=== PATIENT | female | born 1950 | race Caucasian/White ===

== ENCOUNTER 2016-06-19 07:49 | Day surgery (SDC) | payer BC ==
[2016-06-19] VITALS (7 sets, daily range): BP systolic 122–183; BP diastolic 66–87; PULSE 50–64; TEMP 97.3–98
[~2016-06-19] VITALS: Ht 167.6 cm; Wt 82.3 kg
[~2016-06-19 07:49] MED LIST: AZOR; HCTZ 25MG25 MG PO; LEXAPRO 10MG10 MG PO; SINGULAIR10 MG PO
[2016-06-19] MEDS ORDERED: SYNTHROID0.05 MG/TA PO (08:18)
[2016-06-19] MEDS ORDERED: CARDIZEM CD 18180 MG PO (08:19)
[2016-06-19] MEDS ORDERED: BENICAR40 MG PO (08:20)
[2016-06-19] MEDS ORDERED: LASIX 40MG TABL40 MG PO (08:21)
[2016-06-19] MEDS ORDERED: PROZAC 20MG20 MG PO (08:22)
[2016-06-19] MEDS ORDERED: LATISSE 5 ML5 ML TOP (08:22)
[2016-06-19] MEDS ORDERED: ALEVE 220MG220 MG PO (08:22)
[2016-06-19] MEDS ORDERED: ASPIRIN 32325 MG/TA1 PO (08:23)
== END 2016-06-19 15:45 | disposition home or self-care (01) ==
LOC: SDCO 07:49
DX: K43.2 Incisional hernia without obstruction or gangrene (principal); K40.90 Unilateral inguinal hernia, without obstruction or gangrene, not specified as recurrent; I10 Essential (primary) hypertension; R01.1 Cardiac murmur, unspecified; E07.9 Disorder of thyroid, unspecified
CPT/HCPCS: A4315; C1781; E0710; J0690; J1100; J1885; J2250; J2405; J2704; J2710; J3010; J7120

== ENCOUNTER 2017-01-10 08:25 | Day surgery (SDC) | payer BC ==
[~2017-01-10] VITALS: Ht 167.8 cm; Wt 78.1 kg
[2017-01-10] VITALS (15 sets, daily range): BP systolic 154–187; BP diastolic 88–110; PULSE 48–67; TEMP 98.5
[~2017-01-10 08:25] MED LIST changes: +ALEVE 220MG220 MG PO; +ASPIRIN 32325 MG/TA1 PO; +BENICAR40 MG PO; +CARDIZEM CD 18180 MG PO; +LASIX 40MG TABL40 MG PO; +LATISSE 5 ML5 ML TOP; +PROZAC 20MG20 MG PO; +SYNTHROID0.05 MG/TA PO
[2017-01-10 08:56] LABS: HEMATOCRIT 40.4 % (37.0-47.0); HEMOGLOBIN 13.4 g/dl (12.5-16.0); MEAN CELL VOLUME 100 fl (80.0-100.0); MEAN CORPUSCULAR HEMOGLOBIN 33 pg (27.0-31.0); MEAN CORPUSCULAR HGB CONC 33 g/dl (33.0-37.0); MEAN PLATELET VOLUME 9.2 fl (7.4-10.4); PLATELET COUNT 358 K/mm3 (130-400); RED BLOOD COUNT 4.04 M/mm3 (4.10-5.30); REDCELL DISTRIBUTION WIDTH-CV 12.1 % (11.5-14.5); WHITE BLOOD COUNT 8.1 K/mm3 (4.8-10.8)
[2017-01-10 09:01] LABS: PROTHROMBIN TIME 11.1 SECONDS (9.7-12.8)
[2017-01-10 09:05] LABS: CREATININE, serum 0.71 mg/dL (0.52-1.25); POTASSIUM 3.7 mmol/L (3.4-5.0)
[2017-01-10] MEDS ORDERED: BYSTOLIC20 MG PO (09:57)
== END 2017-01-10 17:10 | disposition home or self-care (01) ==
LOC: COL.CAR 08:25
PROVIDERS: Internal Medicine Cardiovascular Disease
DX: I08.3 Combined rheumatic disorders of mitral, aortic and tricuspid valves (principal); I25.10 Atherosclerotic heart disease of native coronary artery without angina pectoris; I77.810 Thoracic aortic ectasia; I11.0 Hypertensive heart disease with heart failure; I50.30 Unspecified diastolic (congestive) heart failure; F32.9 Major depressive disorder, single episode, unspecified; M19.90 Unspecified osteoarthritis, unspecified site; Z87.891 Personal history of nicotine dependence; Z82.49 Family history of ischemic heart disease and other diseases of the circulatory system
CPT/HCPCS: C1725; C1760; C1769; C1894; J2250; J3010; Q9967

== ENCOUNTER → 2017-01-14 | Outpatient (CLI) | payer BC ==
[~2017-01-14] MED LIST changes: +BYSTOLIC20 MG PO
== END ==
LOC: COL.PUL 10:37
DX: Z01.810 Encounter for preprocedural cardiovascular examination (principal); I35.0 Nonrheumatic aortic (valve) stenosis; R06.02 Shortness of breath

== ENCOUNTER → 2018-04-01 | Outpatient (CLI) | payer MEDICARE, BC | LOC: COL.RAD 07:36 | DX: I71.2 Thoracic aortic aneurysm, without rupture (principal); J43.9 Emphysema, unspecified; K80.20 Calculus of gallbladder without cholecystitis without obstruction; I70.0 Atherosclerosis of aorta; Z98.890 Other specified postprocedural states; Z95.2 Presence of prosthetic heart valve; Z87.81 Personal history of (healed) traumatic fracture; Z90.710 Acquired absence of both cervix and uterus; Z96.642 Presence of left artificial hip joint | CPT/HCPCS: Q9967 ==

== ENCOUNTER 2020-01-14 09:23 | Day surgery (SDC) | payer MEDICARE, BC ==
[~2020-01-14] VITALS: Ht 167.7 cm; Wt 80.5 kg
[~2020-01-14 09:23] MED LIST changes: +SINGULAIR 110 MG/TAB PO; -SINGULAIR10 MG PO
[2020-01-14 09:54] VITALS: BP 133/86; PULSE 96; TEMP 97
[2020-01-14] MEDS ORDERED: NORVASC 5MG5 MG/TAB PO (10:00)
[2020-01-14 12:35] VITALS: BP 120/86; PULSE 61
[2020-01-14 12:50] VITALS: BP 104/77; PULSE 62
[2020-01-14 13:05] VITALS: BP 109/84; PULSE 68
[2020-01-14 13:20] VITALS: BP 112/89; PULSE 86
[2020-01-14 14:00] VITALS: BP 115/90; PULSE 80
== END 2020-01-14 14:00 | disposition home or self-care (01) ==
LOC: COL.CAR 09:23
DX: M84.48XA Pathological fracture, other site, initial encounter for fracture (principal); Z90.710 Acquired absence of both cervix and uterus; Z95.2 Presence of prosthetic heart valve; Z96.642 Presence of left artificial hip joint; Z90.49 Acquired absence of other specified parts of digestive tract; Z88.1 Allergy status to other antibiotic agents; Z88.0 Allergy status to penicillin; Z88.2 Allergy status to sulfonamides; Z88.7 Allergy status to serum and vaccine; Z87.891 Personal history of nicotine dependence
CPT/HCPCS: C1713; J2250; J3010

== ENCOUNTER → 2020-02-14 | Outpatient (CLI) | payer MEDICARE, BC ==
[~2020-02-14] MED LIST changes: +NORVASC 5MG5 MG/TAB PO
== END ==
LOC: COL.RAD 07:43
DX: I77.810 Thoracic aortic ectasia (principal); I51.7 Cardiomegaly; I72.2 Aneurysm of renal artery; J43.9 Emphysema, unspecified; S32.502D Unspecified fracture of left pubis, subsequent encounter for fracture with routine healing; Z96.642 Presence of left artificial hip joint; Z95.2 Presence of prosthetic heart valve; Z90.711 Acquired absence of uterus with remaining cervical stump; Z90.49 Acquired absence of other specified parts of digestive tract
CPT/HCPCS: Q9967

== ENCOUNTER → 2020-03-02 | Outpatient (CLI) | payer MEDICARE, BC ==
[~2020-03-02] MED LIST changes: +ELIQUIS 5MG PO
== END ==
LOC: COL.RAD 13:26
DX: Z01.812 Encounter for preprocedural laboratory examination (principal); I77.810 Thoracic aortic ectasia
CPT/HCPCS: Q9967

== ENCOUNTER 2020-03-03 09:18 | Emergency (ER) | payer MEDICARE, BC ==
[~2020-03-03] VITALS: Ht 167.6 cm; Wt 77.3 kg
[~2020-03-03 09:18] MED LIST changes: -ELIQUIS 5MG PO
[2020-03-03 09:24] VITALS: TEMP 97.7
[2020-03-03] MEDS ORDERED: ELIQUIS 5MG PO (09:27)
[2020-03-03 10:21] LABS: BASO # 0.1 (0.0-0.2); BASO % 0.8 % (0.0-2.0); EOS # 0.2 (0.0-0.7); EOS % 2.6 % (0-4.0); GRAN # 4.3 (1.4-6.5); GRAN % 67.1 % (42.2-75.2); HEMATOCRIT 44.3 % (37.0-47.0); HEMOGLOBIN 14.7 g/dl (12.5-16.0); LYMPH # 1.4 (1.2-3.4); LYMPH % 21.9 % (20.0-51.0); MEAN CELL VOLUME 101 fl (80.0-100.0); MEAN CORPUSCULAR HEMOGLOBIN 34 pg (27.0-31.0); MEAN CORPUSCULAR HGB CONC 33 g/dl (33.0-37.0); MEAN PLATELET VOLUME 9.6 fl (7.4-10.4); MONO # 0.5 (0.1-0.6); MONO % 7.3 % (1.7-9.3); PLATELET COUNT 302 K/mm3 (130-400); RED BLOOD COUNT 4.39 M/mm3 (4.10-5.30); REDCELL DISTRIBUTION WIDTH-CV 12.4 % (11.5-14.5)
[2020-03-03 10:32] LABS: ALANINE AMINOTRANSFERASE 41 U/L (4-34); ALBUMIN 4.4 gm/dL (3.5-5.0); ALKALINE PHOSPHATASE 181 U/L (50-136); ANION GAP 9 mmol/L (7-16); AST,SGOT 37 U/L (15-37); BILIRUBIN,TOTAL 0.5 mg/dL (0.0-1.0); BLOOD UREA NITROGEN 14 mg/dL (7-17); CALCIUM 9.7 mg/dL (8.4-10.2); CARBON DIOXIDE 29 mmol/L (22-30); CHLORIDE 100 mmol/L (98-107); CREATININE, serum 0.62 (0.52-1.25); GLUCOSE 92 mg/dL (74-106); PROTHROMBIN TIME 11.6 SECONDS (9.7-12.8); SODIUM 138 mmol/L (137-145); TOTAL PROTEIN 7.9 gm/dL (6.4-8.2)
[2020-03-03 10:44] LABS: TROPONIN-I < 0.012 ng/mL (0.000-0.035)
[2020-03-03 15:15] VITALS: BP 132/81; PULSE 89
== END 2020-03-03 15:51 | disposition short-term general hospital (02) ==
LOC: COL.ER 09:18
PROVIDERS: Emergency Medicine
DX: I71.00 Dissection of unspecified site of aorta (principal); I10 Essential (primary) hypertension; Z79.01 Long term (current) use of anticoagulants; Z88.6 Allergy status to analgesic agent; Z88.8 Allergy status to other drugs, medicaments and biological substances; Z88.1 Allergy status to other antibiotic agents; Z88.2 Allergy status to sulfonamides

== ENCOUNTER 2020-04-24 16:41 | Inpatient (IN) | payer MEDICARE, BC ==
[~2020-04-24] VITALS: Ht 162.6 cm; Wt 82.8 kg
[~2020-04-24 16:41] MED LIST changes: +ELIQUIS 5MG PO
[2020-05-01 09:49] VITALS: BP 114/71; PULSE 74; TEMP 98.5
[2020-05-01 11:31] LABS: BASO # 0.1 (0.0-0.2); BASO % 0.6 % (0.0-2.0); EOS # 0.1 (0.0-0.7); GRAN # 6.2 (1.4-6.5); GRAN % 76.3 % (42.2-75.2); HEMATOCRIT 39.2 % (37.0-47.0); HEMOGLOBIN 12.6 g/dl (12.5-16.0); LYMPH # 1.3 (1.2-3.4); LYMPH % 16.1 % (20.0-51.0); MEAN CELL VOLUME 95 fl (80.0-100.0); MEAN CORPUSCULAR HEMOGLOBIN 31 pg (27.0-31.0); MEAN CORPUSCULAR HGB CONC 32 g/dl (33.0-37.0); MEAN PLATELET VOLUME 9.1 fl (7.4-10.4); MONO # 0.5 (0.1-0.6); MONO % 5.5 % (1.7-9.3); PLATELET COUNT 284 K/mm3 (130-400); RED BLOOD COUNT 4.13 M/mm3 (4.10-5.30); REDCELL DISTRIBUTION WIDTH-CV 12.2 % (11.5-14.5)
[2020-05-01 11:32] LABS: INR 1.4 (0.8-3.0); PROTHROMBIN TIME 15.3 SECONDS (9.7-12.8)
[2020-05-01 11:35] LABS: ALBUMIN 4.5 gm/dL (3.5-5.0); BILIRUBIN,TOTAL 0.5 mg/dL (0.0-1.0); CALCIUM 9.9 mg/dL (8.4-10.2); CREATININE, serum 0.6 (0.52-1.25); POTASSIUM 4.1 mmol/L (3.4-5.0); TOTAL PROTEIN 8.3 gm/dL (6.4-8.2)
[2020-05-01] MEDS ORDERED: TYLENOL 500MG500 MG PO (11:46)
[2020-05-01] MEDS ORDERED: TOPROL XL 25MG25 MG (11:49)
[2020-05-01 12:04] LABS: THYROID STIMULATING HORMONE 1.51 uIU/mL (0.465-4.680)
[2020-05-01 12:55] VITALS: BP 139/63; PULSE 88; TEMP 98.2
[2020-05-01 13:41] VITALS: BP 125/72; PULSE 70; TEMP 98.2
--- NOTE | 2020-05-01 15:21 | NUR ---
Patient is alert and oriented. denies any pain. Patient was admitted today by Dr Montaño for Sotalol initiation. patient EKG shows abnormal rhythm , VPaced, Qtc 510. Informed Dr Montaño before sotalol was given. completed physical and history assessment with patient. Patient is couldn't confirm if she takes Norvasc, and what dose of Metoprolol she takes. Patient Spouse will be providing patient's medication list to patient. Will review medication reconciliation with patient again. patient is independent in the room at this time. No concern or question at this time.
[2020-05-01 15:50] VITALS: BP 126/60; PULSE 82; TEMP 98.5
--- NOTE | 2020-05-01 18:41 | NUR ---
Patient alert and oriented. denies any pain, complain of constipation. patient had dialysis today. gave patient dulcolax and prune juice for constipation. administer hydralizine. spb 189, post dialysis, gave patient daily blood pressure medication, rechecked SBP 157. at bedside. patient resting in bed at this time.
[2020-05-01 19:46] VITALS: BP 120/70; PULSE 76; TEMP 97.7
--- NOTE | 2020-05-01 20:06 | NUR ---
Resting in bed. Assessment complete. Lungs clear. Heart sounds irregular. Bowels active x4. Pulses present throughout. No edema noted. INT left wrist without complications. Denies pain. Denies needs. Call light in reach.
[2020-05-02] VITALS (7 sets, daily range): BP systolic 119–140; BP diastolic 66–91; PULSE 69–73; TEMP 97.5–98.2
--- NOTE | 2020-05-02 00:54 | NUR ---
Resting in bed. Denies needs. Call light in reach.
--- NOTE | 2020-05-02 05:50 | NUR ---
Patient had uneventful night. Resting in bed this AM. Call light in reach.
[2020-05-02 06:41] LABS: BASO # 0.1 (0.0-0.2); BASO % 0.8 % (0.0-2.0); EOS # 0.2 (0.0-0.7); EOS % 2.3 % (0-4.0); GRAN # 4.6 (1.4-6.5); GRAN % 70.1 % (42.2-75.2); HEMATOCRIT 37.5 % (37.0-47.0); HEMOGLOBIN 11.9 g/dl (12.5-16.0); LYMPH # 1.3 (1.2-3.4); LYMPH % 20.3 % (20.0-51.0); MEAN CELL VOLUME 95 fl (80.0-100.0); MEAN CORPUSCULAR HEMOGLOBIN 30 pg (27.0-31.0); MEAN CORPUSCULAR HGB CONC 32 g/dl (33.0-37.0); MEAN PLATELET VOLUME 9.2 fl (7.4-10.4); MONO # 0.4 (0.1-0.6); PLATELET COUNT 265 K/mm3 (130-400); RED BLOOD COUNT 3.94 M/mm3 (4.10-5.30); REDCELL DISTRIBUTION WIDTH-CV 12.2 % (11.5-14.5)
[2020-05-02 06:54] LABS: CALCIUM 9.4 mg/dL (8.4-10.2); CREATININE, serum 0.62 (0.52-1.25); POTASSIUM 3.8 mmol/L (3.4-5.0)
--- NOTE | 2020-05-02 07:00 | NUR ---
awake resting in bed, bedside shift report received from ASCENCION Prakash
--- NOTE | 2020-05-02 07:10 | NUR ---
Report given to ASCENCION López
--- NOTE | 2020-05-02 07:30 | NUR ---
up and about in room and going to bathroom, full assessment completed, see interventions for further info, denies needs at this time
--- NOTE | 2020-05-02 10:05 | NUR ---
called and stated she was having chest pain, states it feels like a charley horse in her chest, BP 130/80, P 74, R 16,, spoke with client technologies specialist and no irregular rhythm noted, as I was checking on her she states the pain then subsides, she states this is how it has been but it lasted longer this time, approx 10 minutes, by the time I was finished asessing the pain was gone, will continue to monitor
--- NOTE | 2020-05-02 10:47 | NUR ---
First visit from the yarn spooler. No needs right now.
--- NOTE | 2020-05-02 11:15 | NUR ---
in bed and appears to be sleeping, eyes closed, resp quiet and easya
--- NOTE | 2020-05-02 13:10 | NUR ---
sitting up in chair, had lunch and tolerated well, denies needs
--- NOTE | 2020-05-02 14:14 | NUR ---
Laborer Pole Crew met with patient to discuss discharge planning. Patient lives in [place] with her , Ady (ph#[phone]). Patient sees Dr. Rodriguez for primary care and obtains medications from [facility] with no difficulties. Patient does not use any DME and reports independence with ADLS. Patient states her , Ady is her DPOA-HC. Patient plans to return home upon discharge. SW contacted patient's , Ady to review discharge plan. Ady has no concerns about patient returning home upon discharge. No needs identified at this time.
--- NOTE | 2020-05-02 15:33 | NUR ---
resting in bed reading a book, denies needs
--- NOTE | 2020-05-02 17:30 | NUR ---
visiting with , consent signed for procedure on Wed
--- NOTE | 2020-05-02 19:07 | NUR ---
bedside shift report given to ASCENCION Prakash
--- NOTE | 2020-05-02 21:30 | NUR ---
Resting in bed. Assessment complete. Lungs clear. Heart sounds normal. Bowels active x4. Pulses present throughout. No edema noted. INT left wrist erythema and painful for patient. Restarted in left forearm. Denies other needs at this time. Call light in reach.
[2020-05-03] VITALS (9 sets, daily range): BP systolic 112–137; BP diastolic 61–80; PULSE 66–74; TEMP 98–98.4
--- NOTE | 2020-05-03 00:28 | NUR ---
Resting in bed. Denies needs. Call light in reach.
--- NOTE | 2020-05-03 02:07 | NUR ---
Resting inbed asleep. Call light in reach.
--- NOTE | 2020-05-03 04:03 | NUR ---
Resting in bed. Call light in reach.
--- NOTE | 2020-05-03 06:09 | NUR ---
Patient had uneventful night. Resting in bed this AM. Call light in reach.
[2020-05-03 06:59] LABS: BASO # 0.1 (0.0-0.2); BASO % 0.7 % (0.0-2.0); EOS # 0.2 (0.0-0.7); EOS % 2.4 % (0-4.0); GRAN # 5.1 (1.4-6.5); GRAN % 71.1 % (42.2-75.2); HEMOGLOBIN 12.3 g/dl (12.5-16.0); LYMPH # 1.4 (1.2-3.4); LYMPH % 19.6 % (20.0-51.0); MEAN CELL VOLUME 96 fl (80.0-100.0); MEAN CORPUSCULAR HEMOGLOBIN 30 pg (27.0-31.0); MEAN CORPUSCULAR HGB CONC 32 g/dl (33.0-37.0); MEAN PLATELET VOLUME 9.6 fl (7.4-10.4); MONO # 0.4 (0.1-0.6); MONO % 5.8 % (1.7-9.3); PLATELET COUNT 267 K/mm3 (130-400); RED BLOOD COUNT 4.05 M/mm3 (4.10-5.30); REDCELL DISTRIBUTION WIDTH-CV 12.2 % (11.5-14.5)
--- NOTE | 2020-05-03 07:08 | NUR ---
Report given to ASCENCION Quintero
[2020-05-03 07:26] LABS: CALCIUM 9.2 mg/dL (8.4-10.2); CREATININE, serum 0.59 (0.52-1.25); MAGNESIUM 2.2 mg/dL (1.6-2.3); POTASSIUM 3.9 mmol/L (3.4-5.0)
--- NOTE | 2020-05-03 08:40 | NUR ---
Notified Dr Montaño that QTC was 512 this am for sotolol dosing. He orderd to give the medication. No other changes a this time. Call light within reach.
--- NOTE | 2020-05-03 13:00 | NUR ---
Patient is going for her JOVANI and cardioversion. Patient has been NPO since midnight. She is hoping to discharge afterwards. No complaints of pain or nausea.
--- NOTE | 2020-05-03 13:30 | NUR ---
Patient is back from her cardioversion. She is alert and oriented. Vital signs stable. Denies pain and nausea. She is hoping to discharge this afternoon. No other changes at this time. Call light within reach.
[2020-05-03] MEDS ORDERED: BETAPACE 80MG80 MG PO (14:53)
--- NOTE | 2020-05-03 15:50 | NUR ---
Patient is discharging home. Discharge instructions discussed with patient. No questions verbalized. Explained she has an EKG scheduled next friday and when her follow up appointment is. No quesitons verbalized. INT discontinued. All belongings packed up by patient. Patient walked out via wheel chair by Carri VIDAL.
== END 2020-05-03 15:50 | disposition home or self-care (01) | DRG 310 ==
LOC: MEDICAL 05-01 08:20
PROVIDERS: ADMIT Internal Medicine Cardiovascular Disease
PROC: 5A2204Z Restoration of Cardiac Rhythm, Single (ICD-10-PCS; principal; 2020-05-03)
DX: I48.0 Paroxysmal atrial fibrillation (principal); I25.10 Atherosclerotic heart disease of native coronary artery without angina pectoris; I10 Essential (primary) hypertension; F17.210 Nicotine dependence, cigarettes, uncomplicated; Z95.2 Presence of prosthetic heart valve; Z95.0 Presence of cardiac pacemaker; Z88.0 Allergy status to penicillin; Z88.2 Allergy status to sulfonamides; Z88.6 Allergy status to analgesic agent
CPT/HCPCS: J2704

== ENCOUNTER → 2020-12-15 | Outpatient (CLI) | payer MEDICARE, BC ==
[~2020-12-15] MED LIST changes: +BETAPACE 80MG80 MG PO; -LASIX 40MG TABL40 MG PO; +LASIX 80MG TABL80 MG PO; +PRIL40 PO; +PROAIR HFA0.09 MG/AC IH; -SYNTHROID0.05 MG/TA PO; +SYNTHROID0.075 MG/T PO; +TIKOSYN0.5 MG PO; +TOPROL XL 25MG25 MG; +TRELEGY ELLIPT1 EACH IH; +TYLENOL 500MG500 MG PO
== END ==
LOC: COL.RAD 09:27
DX: M48.061 Spinal stenosis, lumbar region without neurogenic claudication (principal); M51.16 Intervertebral disc disorders with radiculopathy, lumbar region; M48.07 Spinal stenosis, lumbosacral region; M47.817 Spondylosis without myelopathy or radiculopathy, lumbosacral region; M47.26 Other spondylosis with radiculopathy, lumbar region; Z98.890 Other specified postprocedural states
CPT/HCPCS: A9585

== ENCOUNTER 2021-04-02 08:45 | Inpatient (IN) | payer MEDICARE, BC ==
[~2021-04-02] VITALS: Ht 162.6 cm; Wt 75.0 kg
[~2021-04-02 08:45] MED LIST changes: -PRIL40 PO; -PROAIR HFA0.09 MG/AC IH; -TIKOSYN0.5 MG PO; -TRELEGY ELLIPT1 EACH IH
[2021-04-02 09:40] VITALS: BP 141/89; PULSE 73; TEMP 98.3
[2021-04-02] MEDS ORDERED: BETAPACE 80MG80 MG PO (10:04)
[2021-04-02] MEDS ORDERED: ASPIRIN 32325 MG/TA1 PO (10:06)
[2021-04-02] MEDS ORDERED: TRELEGY ELLIPT1 EACH IH (10:07)
[2021-04-02] MEDS ORDERED: PRIL40 PO (10:08)
[2021-04-02] MEDS ORDERED: PROAIR HFA0.09 MG/AC IH (10:09)
[2021-04-02 10:19] LABS: CREATININE, serum 0.78 mg/dL (0.57-1.11); MAGNESIUM 2.1 mg/dL (1.6-2.6)
[2021-04-02 11:03] LABS: BASO % 0.5 % (0.0-2.0); EOS # 0.2 K/mm3 (0.0-0.7); EOS % 2.9 % (0-4.0); GRAN # 4.6 K/mm3 (1.4-6.5); GRAN % 73.2 % (42.2-75.2); HEMOGLOBIN 14.4 g/dl (12.5-16.0); LYMPH # 1.1 K/mm3 (1.2-3.4); MEAN CELL VOLUME 96 fl (80.0-100.0); MEAN CORPUSCULAR HEMOGLOBIN 32 pg (27.0-31.0); MEAN CORPUSCULAR HGB CONC 34 g/dl (33.0-37.0); MEAN PLATELET VOLUME 9.9 fl (7.4-10.4); MONO # 0.4 K/mm3 (0.1-0.6); MONO % 5.9 % (1.7-9.3); PLATELET COUNT 310 K/mm3 (130-400); RED BLOOD COUNT 4.47 M/mm3 (4.10-5.30); REDCELL DISTRIBUTION WIDTH-CV 12.3 % (11.5-14.5)
[2021-04-02 12:23] VITALS: BP 132/78; PULSE 73; TEMP 94.6
[2021-04-02 15:49] VITALS: BP 136/85; PULSE 71; TEMP 98.3
[2021-04-02 20:00] VITALS: BP 147/96; PULSE 74; TEMP 98.3
[2021-04-02 22:35] VITALS: BP 148/93; PULSE 72; TEMP 97.6
[2021-04-03 05:58] VITALS: BP 150/87; PULSE 74; TEMP 97.7
--- NOTE | 2021-04-03 06:28 | NUR ---
PT HAD UNEVENTFUL NIGHT. PT DENIES SOA,PAIN,N,V. ALL NEEDS MET THIS NIGHT. CALL LIGHT WITHIN REACH.
[2021-04-03 08:03] LABS: BASO % 0.5 % (0.0-2.0); EOS # 0.2 K/mm3 (0.0-0.7); EOS % 3.4 % (0-4.0); GRAN # 3.9 K/mm3 (1.4-6.5); HEMATOCRIT 40.7 % (37.0-47.0); HEMOGLOBIN 13.5 g/dl (12.5-16.0); LYMPH # 1.3 K/mm3 (1.2-3.4); LYMPH % 21.3 % (20.0-51.0); MEAN CELL VOLUME 97 fl (80.0-100.0); MEAN CORPUSCULAR HEMOGLOBIN 32 pg (27.0-31.0); MEAN CORPUSCULAR HGB CONC 33 g/dl (33.0-37.0); MEAN PLATELET VOLUME 9.4 fl (7.4-10.4); MONO # 0.4 K/mm3 (0.1-0.6); MONO % 7.3 % (1.7-9.3); PLATELET COUNT 281 K/mm3 (130-400); RED BLOOD COUNT 4.19 M/mm3 (4.10-5.30); REDCELL DISTRIBUTION WIDTH-CV 12.4 % (11.5-14.5)
[2021-04-03 08:23] LABS: CALCIUM 9.9 mg/dL (8.4-10.2); CREATININE, serum 0.73 mg/dL (0.57-1.11); MAGNESIUM 2.2 mg/dL (1.6-2.6); POTASSIUM 3.8 mmol/L (3.5-4.5)
[2021-04-03 09:18] VITALS: BP 154/93; PULSE 71; TEMP 97.6
--- NOTE | 2021-04-03 10:17 | NUR ---
Initial visit; Patient thanked Health And Safety Consultant for looking in on her and offering god's blessings.
--- NOTE | 2021-04-03 10:26 | NUR ---
SW met with the patient to discuss discharge plan. The patient lives in [place] with her , Ady ([phone]). She reports independence with ADLs and has a cane and walker available, if needed. The patient's PCP is Dr. Carlos Rodriguez and she receives her medications from [facility]. She reports no difficulties obtaining her meds. The patient's DPOA-HC is in EMR and it designates her . The patient plans to return home with her upon discharge. No additional needs at this time. *Discharge plan: home with *
--- NOTE | 2021-04-03 11:45 | NUR ---
PT ALERT AND ORIENTED IN ROOM. PT ABLE TO AMBULATE INDEPENDENTLY. COARSE LUNG SOUNDS AUSCULTATED IN LEFT LOWER LOBE. PT HAS 1+ PULSE NOTED IN LEFT WRIST, PT AWARE, STATES THIS IS NOT NEW. PT CAP REFILL <3S. PT DENIED PAIN DURING ASSESSMENT THEN REPORTED 2/10 HEADACHE. DENIES NEEDING MEDICATIONS TO MANAGE HEADACHE. PT BLOOD PRESSURE ELEVATED AT TIME OF VITAL SIGN COLLECTION, BLOOD PRESSURE MEDICATIONS GIVEN PER ORDERS. NO OTHER NEEDS AT THIS TIME.
[2021-04-03 12:29] VITALS: BP 154/89; PULSE 72; TEMP 98.2
--- NOTE | 2021-04-03 14:10 | NUR ---
DR. REN NOTIFIED OF NEED FOR VTE. HEPARIN SUBCUTANEOUS 5,000 UNITS BID ORDERS RECEIVED VIA VERBAL READ BACK.
--- NOTE | 2021-04-03 15:37 | NUR ---
PT REPORTS SOME NAUSEA, THINKS POST-NASAL DRIP IS MAKING HER FEEL BAD. PT REQUESTED SALTINE CRACKERS (GIVEN UNSALTED TOPS), ICE, AND SPRITE TO MANAGE.
--- NOTE | 2021-04-03 17:01 | NUR ---
PT CONTINUING ON PLAN OF CARE. PT COMPLAINED OF NAUSEA, MANAGED WITH SPRITE, CRACKERS AND ICE PER PT REQUEST. PT COMPLAINED OF MILD HEADACHE, REFUSED MEDICATIONS TO HELP MANAGE THIS SHIFT. PT ABLE TO AMBULATE INDEPENDENTLY. NO SIGNIFICANT CHANGES NOTED THIS SHIFT.
[2021-04-03 17:30] VITALS: BP 155/86; PULSE 70; TEMP 98
[2021-04-03 19:30] VITALS: BP 150/87; PULSE 82; TEMP 98.3
--- NOTE | 2021-04-03 20:47 | NUR ---
NOTIFED RT OF 2HR AFTER EKG FOR TIKOSYN,
[2021-04-04 00:12] VITALS: BP 149/78; PULSE 71; TEMP 97.5
[2021-04-04 03:31] VITALS: BP 138/87; PULSE 70; TEMP 98.6
--- NOTE | 2021-04-04 06:14 | NUR ---
RESTED THROUGH THE NIGHT WITHOUT INCIDNET. NEEDS MET.
[2021-04-04 06:26] LABS: BASO % 0.6 % (0.0-2.0); EOS # 0.2 K/mm3 (0.0-0.7); EOS % 2.6 % (0-4.0); GRAN # 4.1 K/mm3 (1.4-6.5); GRAN % 64.8 % (42.2-75.2); HEMATOCRIT 41.8 % (37.0-47.0); HEMOGLOBIN 13.7 g/dl (12.5-16.0); LYMPH # 1.6 K/mm3 (1.2-3.4); LYMPH % 25.1 % (20.0-51.0); MEAN CELL VOLUME 97 fl (80.0-100.0); MEAN CORPUSCULAR HEMOGLOBIN 32 pg (27.0-31.0); MEAN CORPUSCULAR HGB CONC 33 g/dl (33.0-37.0); MEAN PLATELET VOLUME 9.2 fl (7.4-10.4); MONO # 0.4 K/mm3 (0.1-0.6); MONO % 6.4 % (1.7-9.3); PLATELET COUNT 263 K/mm3 (130-400); REDCELL DISTRIBUTION WIDTH-CV 12.3 % (11.5-14.5)
[2021-04-04 06:47] LABS: CALCIUM 9.9 mg/dL (8.4-10.2); CREATININE, serum 0.69 mg/dL (0.57-1.11); MAGNESIUM 2.2 mg/dL (1.6-2.6); POTASSIUM 3.6 mmol/L (3.5-4.5)
[2021-04-04 08:20] VITALS: BP 150/93; BP 154/99; PULSE 77; TEMP 98
--- NOTE | 2021-04-04 11:06 | NUR ---
Assessment completed, alert/oriented, vital signs stable, denies pain, Paced on tele, heart RRR/distal pulses are palapble, lungs CTA/ no resp.difficulty noted, 5 dose of Sotalol will get EKG and give 6th dose early this evening so patient can get discharge this evening pending EKG result, she denies needs or concerns, will continue rekha onitor, she is independent in her room
--- NOTE | 2021-04-04 11:37 | NUR ---
First visit from the discovery guide. No needs right now.
[2021-04-04 12:13] VITALS: BP 163/92; PULSE 72; TEMP 98.1
[2021-04-04] MEDS ORDERED: TIKOSYN0.5 MG PO (16:24)
[2021-04-04 16:38] VITALS: BP 138/87; PULSE 70; TEMP 98
--- NOTE | 2021-04-04 18:58 | NUR ---
Last dose of Tikosyn given at 1700, EKG done at 1800/ qtc WNL, Discharge instructions discussed with patient, instructed to follow up with Cardiology as scheduled, instructed to take Tikosyn as prescribed, script sent to [facility], IV and tele removed, patient leaving with her , i escorted them out the door
== END 2021-04-04 19:01 | disposition home or self-care (01) | DRG 310 ==
LOC: MEDICAL 08:45
PROVIDERS: ADMIT Internal Medicine Cardiovascular Disease
DX: I48.0 Paroxysmal atrial fibrillation (principal); F32.9 Major depressive disorder, single episode, unspecified; G47.33 Obstructive sleep apnea (adult) (pediatric); I10 Essential (primary) hypertension; T44.7X5A Adverse effect of beta-adrenoreceptor antagonists, initial encounter; Z95.0 Presence of cardiac pacemaker; Z95.2 Presence of prosthetic heart valve; Z88.1 Allergy status to other antibiotic agents
CPT/HCPCS: J1644

== ENCOUNTER 2024-01-21 10:10 | Day surgery (SDC) | payer MEDICARE, BC ==
[~2024-01-21] VITALS: Ht 160 cm; Wt 68.5 kg
[2024-01-21] VITALS (7 sets, daily range): BP systolic 117–128; BP diastolic 65–76; PULSE 69–77; TEMP 97.8–98.3
[~2024-01-21 10:10] MED LIST changes: +CALCIUM CITRAT950 MG PO; +CORDARONE200 MG/TAB PO; +CYMBALTA 30MG30 MG PO; +DOXYCYCLINE HY100 MG PO; +HYDROmorphone 1 MG/1 ML SYRINGE [PACU/SDC ONLY] IV PRN; +LR 1,000 ML IV SCH; +Lidocaine PF 2% (20 MG/ML) 5 ML VIAL ONE; +OMNICEF 300MG300 MG PO; +Ondansetron 4 MG/2 ML VIAL IV PRN; +Ondansetron 4 MG/2 ML VIAL ONE; +PREDNISONE20 MG PO; +PRIL40 PO; +PROAIR HFA0.09 MG/AC IH; +Rocuronium 50 MG/5 ML Multi-Dose VIAL ONE; +TIKOSYN0.5 MG PO; +TRELEGY ELLIPT1 EACH IH; +ZETIA 10MG TAB10 MG PO; +dexAMETHasone 10 MG/ML VIAL ONE; +fentaNYL 50 MCG/ML 1 ML SYRINGE/VIAL [PACU/SDC ONLY] IV PRN
--- NOTE | 2024-01-21 11:00 | NUR ---
The patient ambulated back to [place] [facility] independently using a steady gait and appeared to tolerate the activity well. Vital signs obtained. Consent signed. 18G IV started in left forearm with LR infusing without difficulty. Assessment completed. Home medications reconcilled. , Ady, at bedside. Warm blanket provided. Lab, Cardiopulmonary, and radiology called for pre op labs, EKG and chest x-ray. Denies any further needs at this time.
[2024-01-21] MEDS ORDERED: ESTRACE0.1 MG/GM VG (11:33)
[2024-01-21] MEDS ORDERED: CYMBALTA 60MG60 MG PO (11:34)
[2024-01-21] MEDS ORDERED: CORDARONE200 MG/TAB PO (11:52)
[2024-01-21 12:04] LABS: HEMATOCRIT 37.5 % (37.0-47.0); HEMOGLOBIN 12.3 g/dl (12.5-16.0); MEAN CELL VOLUME 94 fl (80.0-100.0); MEAN CORPUSCULAR HEMOGLOBIN 31 pg (27-31); MEAN CORPUSCULAR HGB CONC 33 g/dl (33.0-37.0); MEAN PLATELET VOLUME 9.1 fl (7.4-10.4); PLATELET COUNT 286 K/mm3 (130-400); RED BLOOD COUNT 3.99 M/mm3 (4.10-5.30); REDCELL DISTRIBUTION WIDTH-CV 14.1 % (11.5-14.5)
[2024-01-21 12:21] LABS: CREATININE, serum 0.85 mg/dL (0.57-1.11); POTASSIUM 3.7 mEq/L (3.5-4.5)
[2024-01-21] MEDS ORDERED: fentaNYL 50 MCG/ML 2 ML VIAL ONE (12:30)
[2024-01-21] MEDS ORDERED: Topical Skin Adhesive 1 EACH (1 ML) TOP ONE (13:09)
[2024-01-21] MEDS ORDERED: Ondansetron 4 MG/2 ML VIAL IV PRN (14:00)
[2024-01-21] MEDS ORDERED: Acetaminophen 325 MG TAB PO PRN (14:00)
[2024-01-21] MEDS ORDERED: Ibuprofen 600 MG TAB PO PRN (14:00)
--- NOTE | 2024-01-21 16:50 | NUR ---
Pt. has met discharge criteria. INT discontinued from lt. forearm. Reviewed and gave discharge paperwork. Pt. voices understanding. Pt. dressed and escorted out by wheelchair.
== END 2024-01-21 16:00 | disposition home or self-care (01) ==
LOC: SDCO 10:10 → SURG 14:15 → SDCO 16:00
PROVIDERS: Surgery
DX: K21.9 Gastro-esophageal reflux disease without esophagitis (principal); K44.9 Diaphragmatic hernia without obstruction or gangrene; C77.2 Secondary and unspecified malignant neoplasm of intra-abdominal lymph nodes; I48.0 Paroxysmal atrial fibrillation; Z79.01 Long term (current) use of anticoagulants
CPT/HCPCS: OP; J0690; J1100; J2405; J2704; J3010; J7120